=== PATIENT | female | born 1985 | race Caucasian/White ===

== ENCOUNTER 2016-11-08 13:14 | Emergency (ER) | payer SELFPAY ==
[~2016-11-08] VITALS: Ht 167.6 cm; Wt 54.5 kg
[~2016-11-08 13:14] MED LIST: PERC5TAB12 PO
[2016-11-08 13:19] VITALS: BP 107/69; PULSE 96; RESP 17; TEMP 99.6; O2SAT 99
[2016-11-08] MEDS ORDERED: AMOX500C PO ×3 (13:50→14:03)
[2016-11-08] MEDS ORDERED: BENZ100 PO ×2 (13:50→14:04)
--- NOTE | 2016-11-08 13:56 | PD ---
HPI Chief Complaint: ENT Complaint Time Seen by Provider: 14:00 Travel History International Travel<30 days: No Contact w/Intl Traveler<30days: No Traveled to known affect area: No History of Present Illness HPI 31y white female here for a sore throat and nonproductive cough. She says that this started about 2 days ago with mild, painful cough, raspy voice, and has recurrent strep pharyngitis. She say this feel like prior episodes except for increased pain in her left neck region. She says she last had a strep throat infection 1 year ago. Denies fever, chills, nausea, vomiting, diarrhea, abdominal pain, flank pain. Pt is able to swallow and eat but it is painful. PFSH Past Medical History Blood Disorders: No Cancer: No Cardiovascular Problems: No Diminished Hearing: No Endocrine: No Gastrointestinal Disorders: No Genitourinary: Yes Immune Disorder: No Implanted Vascular Access Dvce: No Kidney Stones: Yes Musculoskeletal: No Neurologic: Yes Psychiatric: No Reproductive: No Respiratory: No Immunizations Current: No Migraines: Yes Tetanus Vaccination: < 5 Years Influenza Vaccination: No ?: Not LMP: 2 WEEKS AGO Ectopic : Yes (RIGHT FALLOPIAN TUBE REMOVED) Tubal Ligation: Yes Past Surgical History Genitourinary Surgery: Yes (LITHOTRIPSY) Gynecologic Surgery: Yes (ECTOPIC ) Other Surgery: Yes (LITHOTRIPSY) Social History Alcohol Use: No Tobacco Use: Yes (1/2) Substance Use: No Allergies-Medications (Allergen,Severity, Reaction): Coded Allergies: cat dander (Unverified Allergy, Intermediate, 11/08/16) Reported Meds & Prescriptions Reported Meds & Active Scripts Active Magic Mouthwash Adult Liq (Multi-Ingredient Mouthwash/Gargle) 120 Ml Susp 5 Ml SWISH-SWAL ACHS 5 Days Each 5mL contains: Nystatin 200,000units, Diphenhydramine 4.25mg, Viscous Lidocaine 10mg, Hernandez syrup 0.8 mL Tessalon Perles (Benzonatate) 100 Mg Cap 100 Mg PO TID PRN 5 Days Amoxicillin 500 Mg Cap 500 Mg PO TID 10 Days Review of Systems Except as stated in HPI: all other systems reviewed are Neg Physical Exam Narrative Posterior pharynx with white exudate bilateral.. GENERAL: well-nourished well-developed SKIN: Warm and dry. no rashes or lesions HEAD: Normocephalic. EYES: No scleral icterus. No injection or drainage. THROAT: mild pharyngeal injection, white exudates, mild tonsillar hypertrophy. Airway is patent. NECK: Supple, trachea midline. No JVD.. no meningismus, mild lymphadenopathy CARDIOVASCULAR: Regular rate and rhythm without murmurs, gallops, or rubs. RESPIRATORY: Breath sounds equal bilaterally. No accessory muscle use. GASTROINTESTINAL: Abdomen soft, non-tender, nondistended. MUSCULOSKELETAL: No cyanosis, or edema. BACK: Nontender without obvious deformity. No CVA tenderness. Data Data Last Documented VS Vital Signs Date Time Temp Pulse Resp B/P (MAP) Pulse Ox O2 Delivery O2 Flow Rate FiO2 11/08/16 13:19 99.6 96 17 107/69 (82) 99 MDM Medical Decision Making Medical Screen Exam Complete: Yes Emergency Medical Condition: Yes Differential Diagnosis Pharyngitis: Viral vs strep vs allergic Narrative Course 31y white female here for a sore throat and nonproductive cough. She says that this started about 2 days ago with mild, painful cough, raspy voice and has recurrent chronic strep pharyngitis. She say this feel like prior episodes except for increased pain in her left neck region. She says she last had a strep throat infection 1 year ago. Denies fever, chills, nausea, chest pain, shortness of breath, vomiting, diarrhea, abdominal pain, flank pain. Pt is able to swallow and eat but it is painful. Patient will get amoxicillin and Tessalon Perles. At discharge she requested Magic mouthwash for symptomatic relief. She states had this medication prior and had good relief with this. She understands that she needs to follow up with her primary care physician and ENT for further treatment and evaluation, especially since this is a recurrent issue. Diagnosis Primary Impression: Strep pharyngitis Referrals: Ear / Nose / Throat Specialist Primary Care Physician Patient Instructions: General Instructions, Pharyngitis (ED) Additional Instructions: Follow up with your Primary Care Physician and ENT for further treatment and evaluation. If symptoms worsen or persist, return to the emergency department. Avoid eating or drink after others as you are contagious. Increase water intake. Use salt water gargles for sore throat. May use lozenges for symptom relief as well. Scripts Yloajakj-Exoxbyqwjewyvzw-Gamhzdhik Liq (Magic Mouthwash Adult Liq) 120 Ml Susp 5 ML SWISH-SWAL ACHS for Mouth sores for 5 Days, #120 ML 0 Refills Each 5mL contains: Nystatin 200,000units, Diphenhydramine 4.25mg, Viscous Lidocaine 10mg, Hernandez syrup 0.8 mL Prov: Concepcion Graham 11/08/16 Benzonatate (Tessalon Perles) 100 Mg Cap 100 MG PO TID Y for COUGH for 5 Days, CAP 0 Refills Prov: Carly Amaro 11/08/16 Amoxicillin (Amoxicillin) 500 Mg Cap 500 MG PO TID for Infection for 10 Days, CAP 0 Refills Prov: Carly Amaro 11/08/16 Disposition: 01 DISCHARGE HOME Condition: Stable Concepcion Graham Nov 08, 2016 13:56
[2016-11-08] MEDS ORDERED: MAGICADU2 SWISH-SWAL (14:15)
== END 2016-11-08 14:21 | disposition home or self-care (01) ==
LOC: PHEFT 13:14
DX: J02.0 Streptococcal pharyngitis (principal); F17.210 Nicotine dependence, cigarettes, uncomplicated
CPT/HCPCS: 99284